=== PATIENT | female | born 1960 | race Caucasian/White ===

== ENCOUNTER 2016-07-14 13:17 | Emergency (ER) | payer SELFPAY ==
--- NOTE | ~2016-07-14 | ER ---
PATIENT'S NAME: LUKE POLANCO [facility] AGE: 56 Y [address] ROOM: [place] [address] LOCATION: [facility] ADMIT DATE: 07/14/2016 ER/Outpatient Report DISCHARGE DATE: 07/14/2016 FAMILY PHYSICIAN: PHYSICIAN, NO ATTENDING PHYSICIAN: Tatiana Mcdaniel Time of arrival: 1317 hours. Time seen: 1318 hours. IDENTIFICATION: A 56-year-old female. CHIEF COMPLAINT: Low blood pressure. HISTORY OF PRESENT ILLNESS: The patient is brought in by her [id number]. She apparently checked her blood pressure at home because she was dizzy and it was 96 systolic, 30 minutes after that it was 86 systolic. She has been lightheaded and dizzy. She has been taking fluids okay. No other problems or concerns. PAST MEDICAL HISTORY: ALLERGIES: NORCO. CURRENT MEDICATIONS: 1. Clonazepam 0.5 mg 1/2 tab b.i.d. 2. Trihexyphenidyl 2 mg two in the morning, one at noon, and two in the evening. 3. Seroquel XR 200 mg at bedtime. 4. [place] 150 mg three tabs b.i.d. 5. Neurontin 100 mg t.i.d. MEDICAL PROBLEMS: Parkinson disease, depression, bipolar disorder, anxiety, tobacco abuse, and dyslipidemia. SOCIAL HISTORY: The patient lives with her son and [id number] in [place]. She works at [employer]. Tobacco use 1 pack per day for 14 years. Alcohol use, denies. Drug use, denies. REVIEW OF SYSTEMS: All systems reviewed and negative other than what is noted in the HPI. PATIENT'S NAME: LUKE POLANCO [facility] AGE: 56 Y [address] ROOM: [place] [address] LOCATION: [facility] ADMIT DATE: 07/14/2016 ER/Outpatient Report DISCHARGE DATE: 07/14/2016 FAMILY PHYSICIAN: PHYSICIAN, CLIFFORD ATTENDING PHYSICIAN: Tatiana Mcdaniel SURGERIES: x3 and appendectomy. FAMILY HISTORY: No pertinent family history identified. REVIEW OF SYSTEMS: All systems reviewed and negative other than what is noted in the HPI. PHYSICAL EXAMINATION: VITAL SIGNS: Weight 54.3 kg, blood pressure 111/56, pulse 76, respirations 20, temperature 98, and saturations 96% on room air. GENERAL: A 56-year-old female, in no acute distress. HEENT: Head: Normocephalic and atraumatic. Ears: TMs translucent, both ears. Nose: Mucosa pink, no lesions. Mouth: No lesions. Pharynx benign. NECK: Supple. No lymphadenopathy. No thyromegaly. LUNGS: Clear to auscultation. HEART: Regular rate and rhythm. ABDOMEN: Soft, nondistended. No hepatosplenomegaly. No palpable masses. SKIN: [place], warm, and dry. No lesions or rashes noted. NEURO: The patient is alert and oriented x4. Cranial nerves 2 through 12 grossly intact. Motor strength 5/5 throughout. Sensation is intact to light touch. Orthostatic blood pressures initially lying 100/59, heart rate 84; standing 97/58 and heart rate 87, and she was a little bit dizzy with this. We gave her 1 L of fluids, rechecked orthostatics 100/57, standing 108/64, pulse changed from 60 to 79, and she had some mild dizziness with standing, although overall she did feel better. LABORATORY DATA: EKG: Sinus rhythm, nonspecific ST-T wave changes. No acute ST elevation or depression. No previous EKG available for comparison. Hemoglobin 12.7, hematocrit 39.8, platelets 194. White count 8.6 with a normal differential. INR 1.0. TSH 1.370. Troponin I less than 0.010. Sodium 142, potassium 4.1, chloride 109, CO2 of 25, BUN 12, creatinine 0.7, blood sugar 98. Liver enzymes normal. Magnesium 2.4, CPK 34, CK-MB less than 0.5. [place] 0.9. Chest x-ray, no acute process. Pending Radiology over-read. IMPRESSION: Orthostatic hypotension, may be some relation to her medications. PLAN: Rest, fluids. Monitor blood pressure and follow up [facility] Saturday or Saturday. Follow up sooner if any problems or concerns. PATIENT'S NAME: LUKE POLANCO [facility] AGE: 56 Y [address] ROOM: [place] [address] LOCATION: [facility] ADMIT DATE: 07/14/2016 ER/Outpatient Report DISCHARGE DATE: 07/14/2016 FAMILY PHYSICIAN: CLIFFORD ERAZO ATTENDING PHYSICIAN: Tatiana Mcdaniel MD MARITO ESCALONA/jacobl /[id number] d: 07/15/16 0824 t: 07/17/16 1424, OUTPATIENT REPORT
[~2016-07-14 13:17] MED LIST: ESKALITH CR450 MG PO; KLONOPIN0.5 MG PO; NICODERM/HABITR21 MG TRANS; SEROQUEL100 MG PO
[2016-07-14 13:49] LABS: BASOPHIL % 0.2 %; EOSINOPHIL # 0.2 K/uL (0.0-0.5); EOSINOPHIL % 1.9 %; HEMATOCRIT 39.8 % (33.0-46.0); HEMOGLOBIN 12.7 g/dL (10.0-15.0); IMMATURE GRANULOCYTE % 0.2 %; LYMPHOCYTE # 1.8 K/uL (0.8-4.0); LYMPHOCYTE % 20.8 %; MCH 30.8 pg (27.0-34.0); MCHC 31.9 gm/dL (32.0-36.5); MCV 96.4 fl (83.0-98.0); MONOCYTE # 0.4 K/uL (0.0-1.0); MONOCYTE % 4.6 %; MPV 8.7 fl (9.4-12.4); NEUTROPHIL # (ANC) 6.2 K/uL (1.8-7.8); NEUTROPHIL % 72.3 %; NRBC % 0 /100WBC (0-0.00); PLATELET COUNT 194 K/uL (150-450); RBC 4.13 M/uL (3.50-5.50); RDW-CV 13.2 % (11.9-14.6); WBC 8.6 K/uL (4.0-11.0)
[2016-07-14 13:57] LABS: PROTIME 9.9 SECONDS (9.6-11.1); PTT 25 SECONDS (25-32)
[2016-07-14 14:08] LABS: ALBUMIN 3.5 gm/dL (3.5-5.0); ALK PHOS 107 IU/L (33-138); ALT 15 IU/L (12-78); ANION GAP 12.1 (10.0-19.0); AST 11 IU/L (10-40); BLOOD UREA NITROGEN 12 mg/dL (6-24); CHLORIDE 109 mMol/L (96-110); CO2 25 mMol/L (22-32); CPK 34 IU/L (21-215); CREATININE 0.7 mg/dL (0.5-1.1); ESTIMATED GFR (MDRD EQUATION) > 60; MAGNESIUM 2.4 mg/dL (1.3-2.6); POTASSIUM 4.1 mMol/L (3.7-5.1); SODIUM 142 mMol/L (135-145); TOTAL PROTEIN 6.8 g/dL (6.0-8.4)
[2016-07-14 14:12] LABS: TOTAL BILIRUBIN 0.2 mg/dL (0.0-1.5)
== END 2016-07-14 16:58 | disposition disaster alternative care site (69) ==
LOC: GMED 13:17
PROVIDERS: Family Medicine
DX: I95.1 Orthostatic hypotension (principal); F31.9 Bipolar disorder, unspecified; F41.9 Anxiety disorder, unspecified; G20 Parkinson's disease; E78.5 Hyperlipidemia, unspecified; F17.210 Nicotine dependence, cigarettes, uncomplicated; Z88.5 Allergy status to narcotic agent; Z79.899 Other long term (current) drug therapy
CPT/HCPCS: J7030

== ENCOUNTER 2016-10-04 11:29 | Emergency (ER) | payer SELFPAY ==
--- NOTE | ~2016-10-04 | ER ---
PATIENT'S NAME: ERICA POLANCO [facility] AGE: 56 Y [address] ROOM: [place] [address] LOCATION: [facility] ADMIT DATE: 10/04/2016 ER/Outpatient Report DISCHARGE DATE: 10/04/2016 FAMILY PHYSICIAN: Constanza Grady APRN ATTENDING PHYSICIAN: Blue Red ADMIT TIME: 1129 hours. TIME OF EVALUATION: 1220 hours. CHIEF COMPLAINT: Pain to left hip, soreness to left ribs. HISTORY OF PRESENT ILLNESS: Erica is a 56-year-old female who presents with her daughter to the emergency room with the above complaints. About a month ago, she fell at home and landed on her left side with outstretched hands. She was seen in the clinic in [place] in which she did have x-rays of her chest. She reports it was negative for any rib fractures. At that time, she was not having much pain to her hip, so this was not x-rayed. From that visit, she was started on tramadol 50 mg 2 tablets p.o. t.i.d. She did get a refill by [facility]. She did run out last night. The patient reports her ribs are better, but still not perfect. She has had an increase in left hip pain that radiates down the lateral side to her knee. She denies any further falls or trauma. She denies any urinary symptoms, any history of back problems, left leg weakness, or loss of bowel or bladder function. PAST MEDICAL HISTORY: 1. Bipolar. 2. Depression. 3. Dyslipidemia. 4. Parkinson disease. 5. Anxiety. MEDICATIONS: 1. Seroquel 200 mg 1 p.o. at h.s. 2. Clonazepam 0.5 mg half a tablet twice daily. 3. Gabapentin 100 mg 3 tablets p.o. daily. 4. [place] 150 mg 3 tablets p.o. b.i.d. 5. Tramadol 50 mg 2 tablets 3 times a day. ALLERGIES: NORCO. PATIENT'S NAME: ERICA POLANCO [facility] AGE: 56 Y [address] ROOM: [place] [address] LOCATION: [facility] ADMIT DATE: 10/04/2016 ER/Outpatient Report DISCHARGE DATE: 10/04/2016 FAMILY PHYSICIAN: Constanza Grady APRN ATTENDING PHYSICIAN: Blue Red SOCIAL HISTORY: The patient does smoke half a pack of cigarettes per day and has done this for the past 43 years. She denies any chewing tobacco, drug, or alcohol use. FAMILY HISTORY: Not obtained. REVIEW OF SYSTEMS: All systems reviewed by myself and negative with the exception of those noted in the HPI. PHYSICAL EXAMINATION: VITAL SIGNS: Height 5 feet 5 inches and weight 56.6 kg. Temperature 99.0, pulse 77, respirations 16, and blood pressure 108/68. She is 95% on room air. Her current pain is 7/10 on a scale of 0 to 10. GENERAL: Erica is alert and oriented x4, cooperative, in no acute distress. She is not anxious, in no distress due to the pain. SKIN: Overall is intact. There is no bruising or abrasions noted to her left rib area or left hip. EYES: Sclerae are nonicteric. Pupils equal, round, and reactive to light. MOUTH AND THROAT: Oropharynx is clear, tongue is midline. NECK: Supple. CHEST AND LUNGS: Lung sounds are clear, diminished throughout. No wheezes or adventitious sounds audible. HEART: Regular rhythm, no murmur appreciated. ABDOMEN: Soft and nontender. CHEST WALL: She does have some mild tenderness to the left anterior rib cage, approximately the nipple line. Again, there is no bruising noted. The pain does not radiate to the lateral or posterior aspect. LEFT PELVIS: She has some tenderness to the trochanteric area only. It does radiate laterally, but stays above the knee. There is no radiculopathy present. Strength 5/5. Straight leg lift is negative. No vertebral tenderness or thigh or sciatic notch tenderness. There is no pain in the sacroiliac joint. Pulses are 2+. No other neurologic deficits noted. No edema is present. NEUROLOGIC: No focal deficits are noted. PSYCHIATRIC: Mood and affect normal, non-anxious. DIAGNOSTIC DATA: Please note, an x-ray of the chest and also left hip were obtained. This was reviewed with Dr. Red. There are no signs of rib fracture. No effusions or infiltrates. Left hip is unremarkable. Official x-ray report is pending. ASSESSMENT: PATIENT'S NAME: ERICA POLANCO [facility] AGE: 56 Y [address] ROOM: [place] [address] LOCATION: [facility] ADMIT DATE: 10/04/2016 ER/Outpatient Report DISCHARGE DATE: 10/04/2016 FAMILY PHYSICIAN: Constanza Grady APRN ATTENDING PHYSICIAN: Blue Red 1. Left hip trochanteric bursitis. 2. Left rib bruise and contusion secondary to fall. PLAN: The patient is just about one month out since her fall. She knows that total resolution of symptoms with her ribs likely 2 to 3 months. We talked about avoiding any pushing, pulling, or heavy lifting. I did give her a handout from "Up to d\\Date" on trochanteric bursitis and also some exercises she may do. It is the plan to wean off her tramadol in the next 2 to 3 weeks. She does coordinate her appointments with Dr. Smith [facility] and [facility] Her daughter has her scheduled with [facility] on the , going to see if she can move it up to tomorrow if possible. It would be more dangerous to stop her tramadol at this point, but we will try and cut them down. Instead of doing 2 tablets 3 times a day, we talked about just doing 1 tablet 3 times a day and adding in Tylenol. She should avoid NSAIDs due to her lithium as this will throw it off. The patient will use ice and topical analgesics, and if there would be any change in condition, she is to follow up immediately. Her daughter verbalizes understanding, agreeable with the plan of care. HARSHAD JIMENEZ APRN FOR MD VALORIE CHUA/sabina /[id number] d: 10/04/16 1849 t: 10/15/16 0702, OUTPATIENT REPORT
== END 2016-10-04 13:16 | disposition disaster alternative care site (69) ==
LOC: GMED 11:29
DX: S20.212A Contusion of left front wall of thorax, initial encounter (principal); M70.62 Trochanteric bursitis, left hip; F31.9 Bipolar disorder, unspecified; E78.5 Hyperlipidemia, unspecified; G20 Parkinson's disease; F41.9 Anxiety disorder, unspecified; F17.210 Nicotine dependence, cigarettes, uncomplicated; Z79.899 Other long term (current) drug therapy; W19.XXXA Unspecified fall, initial encounter; Y92.009 Unspecified place in unspecified non-institutional (private) residence as the place of occurrence of the external cause

== ENCOUNTER 2016-10-30 09:17 | Emergency (ER) | payer SELFPAY ==
--- NOTE | ~2016-10-30 | ER ---
PATIENT'S NAME: LUKE POLANCO [facility] AGE: 56 Y [address] ROOM: [place] [address] LOCATION: ED ADMIT DATE: 10/30/2016 ER/Outpatient Report DISCHARGE DATE: 10/30/2016 FAMILY PHYSICIAN: Constanza Grady APRN ATTENDING PHYSICIAN: Tatiana Mcdaniel TIME OF ARRIVAL: 0917 hours. TIME SEEN: 0930 hours. IDENTIFICATION: A 56-year-old female. CHIEF COMPLAINT: Back pain. HISTORY OF PRESENT ILLNESS: The patient said 2 days ago she developed a "backache." She says she has had it "off and on" for years. She saw Dr. Ahn 2 weeks ago for evaluation for Parkinson's and stated that he told her she had scoliosis. She describes the pain as sharp intermittent pain midback, more to the right, no radiation. When asked about tingling, she said "sometimes I have it in my feet." She has no tingling at this time. No bowel or bladder problems. No other problems or concerns. [facility] but could not get in until Saturday. She does assure me that she kept that appointment scheduled for Saturday however. ALLERGIES: NORCO CAUSES HIVES. CURRENT MEDICATIONS: 1. [place]. 2. Clonazepam. 3. Gabapentin. 4. Propranolol. MEDICAL PROBLEMS: Parkinson's disease, newly diagnosed, hypertension, bipolar, anxiety, and depression. PRIOR SURGERIES: Breast biopsy, appendectomy, and section x3. PATIENT'S NAME: LUKE POLANCO [facility] AGE: 56 Y [address] ROOM: [place] [address] LOCATION: ED ADMIT DATE: 10/30/2016 ER/Outpatient Report DISCHARGE DATE: 10/30/2016 FAMILY PHYSICIAN: Constanza Grady APRN ATTENDING PHYSICIAN: Tatiana Mcdaniel SOCIAL HISTORY: The patient lives in [place]. Tobacco use, 1/2 pack per day. Alcohol use, denies. Drug use, denies. REVIEW OF SYSTEMS: All systems reviewed and negative other than what is noted in the HPI. FAMILY HISTORY: No pertinent family history. PHYSICAL EXAMINATION: VITAL SIGNS: Height 5 feet, 5 inches, weight 60.3 kg, blood pressure 110/69, pulse 65, respirations 16, temperature 97.3, and sats 97% on room air. GENERAL: A 56-year-old female in no acute distress although she rates her pain 8/10. HEAD: Normocephalic, atraumatic. EARS: TMs translucent both ears. EYES: Pupils equal and reactive to light and accommodation. Extraocular movements intact. NOSE: Mucosa pink. No lesions. . MOUTH: Pharynx benign. NECK: Supple. No lymphadenopathy. No nuchal rigidity. LUNGS: Clear to auscultation. Breath sounds are equal. HEART: Regular rate and rhythm. No murmur, rub, or gallop. ABDOMEN: Bowel sounds present. Soft, nondistended, nontender. SKIN: [place], warm, and dry. No lesions or rashes noted. NEURO: The patient is alert and oriented x4. Cranial nerves 2 through 12 grossly intact. Motor strength 5/5 throughout. Sensation is intact to light touch. No lower extremity edema. She is tender to palpation in the right midback just to the right of the thoracic spine. There are no palpable deformities. EMERGENCY DEPARTMENT COURSE: UA is unremarkable. She was given Toradol 30 mg IM with improvement of her pain and it completely relieved. When I talked with her about pain management with Toradol and maybe a muscle relaxant, she specifically requested tramadol, which interestingly enough her daughter was in requesting tramadol within the last 1 week. IMPRESSION: Back pain, musculoskeletal in nature. PLAN: Back pain, handout provided, ice or heat, no heavy lifting, Flexeril 10 mg 1/2 to 1 tablet q.8 h. p.r.n. spasm. Follow up as scheduled Saturday at the [facility] PATIENT'S NAME: LUKE POLANCO [facility] AGE: 56 Y [address] ROOM: [place], [place] [address] LOCATION: [facility] ADMIT DATE: 10/30/2016 ER/Outpatient Report DISCHARGE DATE: 10/30/2016 FAMILY PHYSICIAN: Constanza Grady APRN ATTENDING PHYSICIAN: Tatiana Mcdaniel [facility]. Follow up sooner if any problems or concerns. MD Deana ESCALONA /[id number] d: 10/30/16 2345 t: 11/11/16 0834, OUTPATIENT REPORT
[2016-10-30 10:06] LABS: BILIRUBIN URINE NEGATIVE (NEGATIVE); BLOOD URINE NEGATIVE /UL (NEGATIVE); COLOR URINE YELLOW (YELLOW); GLUCOSE URINE NEGATIVE (NEGATIVE); KETONE URINE NEGATIVE (NEGATIVE); LEUKOCYTES URINE 25 /UL (NEGATIVE); NITRITE URINE NEGATIVE (NEGATIVE); PH URINE 6.5 (4.0-8.0); PROTEIN URINE NEGATIVE (NEGATIVE); SPEC GRAVITY URINE 1.005 (1.003-1.035); TURBIDITY URINE CLEAR (CLEAR); UROBILINOGEN URINE NORMAL (NORMAL)
[2016-10-30 10:17] LABS: BACTERIA URINE NEGATIVE (NEGATIVE); EPITHELIAL URINE 0-2 #/HPF (NEGATIVE); MUCUS URINE 1+ (NEGATIVE); RBC URINE RARE #/HPF (NEGATIVE); WBC URINE 0-2 #/HPF (NEGATIVE)
== END 2016-10-30 10:22 | disposition disaster alternative care site (69) ==
LOC: GMED 09:17
PROVIDERS: Family Medicine
DX: M54.6 Pain in thoracic spine (principal); F17.210 Nicotine dependence, cigarettes, uncomplicated; G20 Parkinson's disease; I10 Essential (primary) hypertension; F31.9 Bipolar disorder, unspecified; F41.9 Anxiety disorder, unspecified; Z88.5 Allergy status to narcotic agent; Z79.899 Other long term (current) drug therapy; Z98.890 Other specified postprocedural states; Z90.49 Acquired absence of other specified parts of digestive tract
CPT/HCPCS: J1885